=== PATIENT | male | born 1985 | race African-American/Black ===

== ENCOUNTER 2016-09-21 00:43 | Emergency (ER) | payer SELFPAY ==
[~2016-09-21] VITALS: Ht 185.4 cm; Wt 67.4 kg
[2016-09-21] MEDS ORDERED: PERCOCET 5/325M1 TAB PO (03:08)
[2016-09-21] MEDS ORDERED: ORPHENADRINE100 MG PO (03:08)
[2016-09-21 03:20] VITALS: BP 124/75
== END 2016-09-21 03:21 | disposition home or self-care (01) | DRG 552 ==
LOC: ED 00:43
DX: M54.9 Dorsalgia, unspecified (principal)

== ENCOUNTER 2017-01-08 16:24 | Emergency (ER) | payer SELFPAY ==
[~2017-01-08] VITALS: Ht 185.4 cm; Wt 80.0 kg
[~2017-01-08 16:24] MED LIST: ORPHENADRINE100 MG PO; PERCOCET 5/325M1 TAB PO
[2017-01-08] MEDS ORDERED: AFRIN 12 HOUR0.05 % (16:57)
[2017-01-08] MEDS ORDERED: TYLENOL # 31 TA1 PO (16:57)
[2017-01-08] MEDS ORDERED: ZITHROMAX250 MG PO (16:57)
[2017-01-08 17:32] LABS: INFLUENZA A NONE DETECTED (NONE DETECT); INFLUENZA B NONE DETECTED (NONE DETECT)
[2017-01-08 17:42] VITALS: BP 119/78
== END 2017-01-08 17:55 | disposition home or self-care (01) | DRG 203 ==
LOC: ED 16:24
PROVIDERS: Emergency Medicine
DX: J40 Bronchitis, not specified as acute or chronic (principal); F17.210 Nicotine dependence, cigarettes, uncomplicated

== ENCOUNTER 2017-01-13 15:43 | Emergency (ER) | payer SELFPAY ==
[~2017-01-13] VITALS: Ht 185.4 cm; Wt 60.0 kg
[~2017-01-13 15:43] MED LIST changes: +AFRIN 12 HOUR0.05 %; +TYLENOL # 31 TA1 PO; +ZITHROMAX250 MG PO
[2017-01-13 16:56] VITALS: BP 109/57
[2017-01-13 16:58] LABS: HEMATOCRIT 37.5 % (39.0-50.0); HEMOGLOBIN 12.7 g/dl (14.0-18.0); IMMATURE GRANULOCYTES 0.1 % (0.0-1.0); MEAN CORPUSCULAR HGB 29.8 pG CALC (26.0-32.0); MEAN CORPUSCULAR HGB CONC 33.9 g/L CALC (32.0-36.0); NEUT# 4.71 thou/uL (1.82-7.42); RED BLOOD COUNT 4.26 mill/uL (4.70-6.10)
[2017-01-13 17:10] LABS: ALBUMIN 4.6 g/dL (3.2-5.0); ALKALINE PHOSPHATASE 45 u/l (38-126); ANION GAP 15 (6-22 (CALC)); BILIRUBIN, TOTAL 2.4 mg/dL (0.0-1.4); BUN 14 mg/dL (9-20); BUN/CREATININE RATIO 18 (12-20 (CALC)); CARBON DIOXIDE 26 mmol/l (22-30); CHLORIDE 103 mmol/l (95-108); CPK 292 u/l (52-200); CREATININE 0.8 mg/dL (0.7-1.3); GFR > 60 ML/MIN (>=60 (CALC)); GFR FOR AFR.AMER. > 60 ML/MIN (>=60 (CALC)); GLUCOSE 103 mg/dL (75-110); POTASSIUM 3.7 mmol/l (3.5-5.1); SGOT/AST 19 u/l (17-59); SGPT/ALT 31 u/l (21-72); SODIUM 140 mmol/l (137-146); TOTAL PROTEIN 7.8 g/dL (6.3-8.2)
[2017-01-13 17:18] LABS: INFLUENZA A NONE DETECTED (NONE DETECT); INFLUENZA B NONE DETECTED (NONE DETECT)
== END 2017-01-13 19:15 | disposition home or self-care (01) | DRG 310 ==
LOC: ED 15:43
PROVIDERS: Emergency Medicine
DX: R00.1 Bradycardia, unspecified (principal); F17.210 Nicotine dependence, cigarettes, uncomplicated; J06.9 Acute upper respiratory infection, unspecified; R42 Dizziness and giddiness; H53.8 Other visual disturbances; M79.1 Myalgia; R05 Cough

== ENCOUNTER 2017-06-21 18:25 | Emergency (ER) | payer SELFPAY ==
[~2017-06-21] VITALS: Ht 185.4 cm; Wt 63.0 kg
[2017-06-21 19:20] LABS: HEMATOCRIT 42.4 % (39.0-50.0); HEMOGLOBIN 14.2 g/dl (14.0-18.0); IMMATURE GRANULOCYTES 0.2 % (0.0-1.0); MEAN CELL VOLUME 89.5 fL CALC (80.0-100.0); MEAN CORPUSCULAR HGB CONC 33.5 g/L CALC (32.0-36.0); NEUT# 2.64 thou/uL (1.82-7.42); RED BLOOD COUNT 4.74 mill/uL (4.70-6.10)
[2017-06-21 19:33] LABS: INFLUENZA A NONE DETECTED (NONE DETECT); INFLUENZA B NONE DETECTED (NONE DETECT)
[2017-06-21 19:59] LABS: ALBUMIN 4.4 g/dL (3.2-5.0); ALKALINE PHOSPHATASE 47 u/l (38-126); ANION GAP 15 (6-22 (CALC)); BILIRUBIN, TOTAL 1.3 mg/dL (0.0-1.4); BUN 14 mg/dL (9-20); BUN/CREATININE RATIO 17 (12-20 (CALC)); CALCIUM 9.4 mg/dL (8.4-10.2); CARBON DIOXIDE 25 mmol/l (22-30); CHLORIDE 107 mmol/l (95-108); CREATININE 0.8 mg/dL (0.7-1.3); GFR > 60 ML/MIN (>=60 (CALC)); GFR FOR AFR.AMER. > 60 ML/MIN (>=60 (CALC)); GLUCOSE 90 mg/dL (75-110); LIPASE 81 u/l (23-300); POTASSIUM 3.9 mmol/l (3.5-5.1); SGOT/AST 25 u/l (17-59); SGPT/ALT 24 u/l (21-72); SODIUM 143 mmol/l (137-146); TOTAL PROTEIN 7.2 g/dL (6.3-8.2)
[2017-06-21 20:16] LABS: URINE BILIRUBIN - DIPSTICK NEGATIVE (NEGATIVE); URINE BLOOD DIPSTICK NEGATIVE (NEGATIVE); URINE CLARITY CLEAR; URINE COLOR YELLOW; URINE GLUCOSE - DIPSTICK NEGATIVE (NEGATIVE); URINE KETONE NEGATIVE (NEGATIVE); URINE LEUK ESTERASE NEGATIVE (NEGATIVE); URINE NITRITE - DIPSTICK NEGATIVE (Negative); URINE PH 5.5 (4.5-8.0); URINE PROTEIN - DIPSTICK NEGATIVE (NEG-TRACE); URINE SPECIFIC GRAVITY >=1.030
[2017-06-21 20:39] VITALS: BP 118/81
== END 2017-06-21 20:48 | disposition home or self-care (01) | DRG 392 ==
LOC: ED 18:25
PROVIDERS: Family Medicine
DX: K52.9 Noninfective gastroenteritis and colitis, unspecified (principal); R10.9 Unspecified abdominal pain; R11.2 Nausea with vomiting, unspecified

== ENCOUNTER 2017-10-30 07:24 | Emergency (ER) | payer OTHER ==
[~2017-10-30] VITALS: Ht 185.4 cm; Wt 60.0 kg
[2017-10-30] MEDS ORDERED: CEPHALEXIN500 M1 PO (08:23)
[2017-10-30 08:29] VITALS: BP 139/78
== END 2017-10-30 08:42 | disposition home or self-care (01) | DRG 605 ==
LOC: ED 07:24
PROC: 0HQGXZZ Repair Left Hand Skin, External Approach (ICD-10-PCS; principal; 2017-10-30)
DX: S61.215A Laceration without foreign body of left ring finger without damage to nail, initial encounter (principal); F17.210 Nicotine dependence, cigarettes, uncomplicated; S62.635A Displaced fracture of distal phalanx of left ring finger, initial encounter for closed fracture; S61.217A Laceration without foreign body of left little finger without damage to nail, initial encounter; W26.0XXA Contact with knife, initial encounter; Y93.89 Activity, other specified; Y92.512 Supermarket, store or market as the place of occurrence of the external cause; Y99.0 Civilian activity done for income or pay

== ENCOUNTER 2018-11-14 09:33 | Inpatient (IN) | payer SELFPAY ==
[~2018-11-14] VITALS: Ht 185.4 cm; Wt 90.9 kg
[~2018-11-14 09:33] MED LIST changes: +CEPHALEXIN500 M1 PO
[2018-11-14 10:11] LABS: HEMATOCRIT 37.3 % (39.0-50.0); HEMOGLOBIN 12.7 g/dl (14.0-18.0); IMMATURE GRANULOCYTES 0.2 % (0.0-5.0); MEAN CELL VOLUME 89.2 fL CALC (80.0-100.0); MEAN CORPUSCULAR HGB 30.4 pG CALC (26.0-32.0); NEUT# 1.78 thou/uL (1.82-7.42); RED BLOOD COUNT 4.18 mill/uL (4.70-6.10); RED CELL DISTRI WIDTH 12.9 % (11.5-15.5)
[2018-11-14 10:31] LABS: ALBUMIN 4.5 g/dL (3.2-5.0); ALKALINE PHOSPHATASE 45 u/l (38-126); ANION GAP 15 (6-22 (CALC)); BILIRUBIN, TOTAL 1.1 mg/dL (0.0-1.4); BUN 18 mg/dL (9-20); BUN/CREATININE RATIO 25 (12-20 (CALC)); CARBON DIOXIDE 24 mmol/l (22-30); CHLORIDE 104 mmol/l (95-108); CREATININE 0.7 mg/dL (0.7-1.3); GFR > 60 ML/MIN (>=60 (CALC)); GFR FOR AFR.AMER. > 60 ML/MIN (>=60 (CALC)); POTASSIUM 3.9 mmol/l (3.5-5.1); SGOT/AST 38 u/l (17-59); SODIUM 138 mmol/l (137-146); TOTAL PROTEIN 7.2 g/dL (6.3-8.2)
[2018-11-14 10:37] LABS: ETHYL ALCOHOL 0 mg/dl (0-30)
[2018-11-14 11:01] LABS: TSH, 3RD GENERATION 1.37 uIU/mL (0.47 - 4.68)
[2018-11-14 12:00] LABS: URINE BILIRUBIN - DIPSTICK NEGATIVE (NEGATIVE); URINE BLOOD DIPSTICK NEGATIVE (NEGATIVE); URINE COLOR YELLOW; URINE GLUCOSE - DIPSTICK NEGATIVE (NEGATIVE); URINE KETONE NEGATIVE (NEGATIVE); URINE LEUK ESTERASE NEGATIVE (NEGATIVE); URINE NITRITE - DIPSTICK NEGATIVE (Negative); URINE PH 7.5 (4.5-8.0); URINE PROTEIN - DIPSTICK TRACE mg/dL (NEG-TRACE); URINE SPECIFIC GRAVITY 1.015; URINE UROBILINOGEN - DIPSTICK 0.2 E.U./dL (0.2)
[2018-11-14 12:05] LABS: BARBITURATES NEGATIVE (NEGATIVE); COCAINE NEGATIVE (NEGATIVE); METHADONE NEGATIVE (NEGATIVE); OXCYCODONE NEGATIVE (NEGATIVE); TETRAHYDROCANNABIONOL NEGATIVE (NEGATIVE); TRICYLIC ANTIDEPRESSANTS NEGATIVE (NEGATIVE)
[2018-11-14 17:10] VITALS: BP 117/80
== END 2018-11-14 17:45 | disposition left against medical advice (07) | DRG 918 ==
LOC: ED 09:33 → ED-I 12:00 → ED 13:27 → ICU 13:28
PROVIDERS: Emergency Medicine; ADMIT Internal Medicine Nephrology; ATTEND Internal Medicine Nephrology
PROC: 0T9B70Z Drainage of Bladder with Drainage Device, Via Natural or Artificial Opening (ICD-10-PCS; principal; 2018-11-14)
DX: T50.901A Poisoning by unspecified drugs, medicaments and biological substances, accidental (unintentional), initial encounter (principal); M62.82 Rhabdomyolysis; R00.1 Bradycardia, unspecified; E86.0 Dehydration; R68.0 Hypothermia, not associated with low environmental temperature; Y92.009 Unspecified place in unspecified non-institutional (private) residence as the place of occurrence of the external cause
CPT/HCPCS: J1650

== ENCOUNTER 2019-05-17 06:22 | Emergency (ER) | payer SELFPAY ==
[~2019-05-17] VITALS: Ht 185.4 cm; Wt 64.0 kg
[2019-05-17 07:03] LABS: HEMATOCRIT 38.7 % (39.0-50.0); HEMOGLOBIN 12.6 g/dl (14.0-18.0); IMMATURE GRANULOCYTES 0.2 % (0.0-5.0); MEAN CELL VOLUME 89.4 fL CALC (80.0-100.0); MEAN CORPUSCULAR HGB 29.1 pG CALC (26.0-32.0); MEAN CORPUSCULAR HGB CONC 32.6 g/L CALC (32.0-36.0); NEUT# 2.82 thou/uL (1.82-7.42); RED BLOOD COUNT 4.33 mill/uL (4.70-6.10); RED CELL DISTRI WIDTH 13.3 % (11.5-15.5); URINE BILIRUBIN - DIPSTICK NEGATIVE (NEGATIVE); URINE BLOOD DIPSTICK TRACE-INTACT (NEGATIVE); URINE COLOR YELLOW; URINE GLUCOSE - DIPSTICK NEGATIVE (NEGATIVE); URINE KETONE NEGATIVE (NEGATIVE); URINE LEUK ESTERASE NEGATIVE (NEGATIVE); URINE NITRITE - DIPSTICK NEGATIVE (Negative); URINE PH 5.5 (4.5-8.0); URINE PROTEIN - DIPSTICK NEGATIVE (NEG-TRACE); URINE SPECIFIC GRAVITY >=1.030; URINE UROBILINOGEN - DIPSTICK 0.2 E.U./dL (0.2)
[2019-05-17 07:48] LABS: ALBUMIN 4.3 g/dL (3.2-5.0); ALKALINE PHOSPHATASE 47 u/l (38-126); ANION GAP 14 (6-22 (CALC)); BILIRUBIN, TOTAL 0.7 mg/dL (0.0-1.4); BUN 15 mg/dL (9-20); BUN/CREATININE RATIO 21 (12-20 (CALC)); CARBON DIOXIDE 24 mmol/l (22-30); CHLORIDE 103 mmol/l (95-108); CREATININE 0.7 mg/dL (0.7-1.3); GFR > 60 ML/MIN (>=60 (CALC)); GFR FOR AFR.AMER. > 60 ML/MIN (>=60 (CALC)); POTASSIUM 4.1 mmol/l (3.5-5.1); SGOT/AST 24 u/l (17-59); SODIUM 137 mmol/l (137-146); TOTAL PROTEIN 7.8 g/dL (6.3-8.2)
[2019-05-17 08:22] VITALS: BP 109/78
== END 2019-05-17 08:22 | disposition home or self-care (01) | DRG 696 ==
LOC: ED 06:22
PROVIDERS: Family Medicine
DX: R31.9 Hematuria, unspecified (principal)

== ENCOUNTER 2019-08-05 11:59 | Emergency (ER) | payer SELFPAY ==
[2019-08-05] MEDS ORDERED: ZOFRAN4 MG/TAB PO (12:31)
[2019-08-05 12:46] VITALS: BP 118/82
== END 2019-08-05 12:50 | disposition home or self-care (01) | DRG 392 ==
LOC: ED 11:59
DX: R11.2 Nausea with vomiting, unspecified (principal)

== ENCOUNTER 2019-08-27 | Emergency (ER) | payer SELFPAY ==
[~2019-08-27] MED LIST changes: +ZOFRAN4 MG/TAB PO
[2019-08-27 10:42] LABS: HEMATOCRIT 38.4 % (39.0-50.0); HEMOGLOBIN 12.5 g/dl (14.0-18.0); IMMATURE GRANULOCYTES 0.4 % (0.0-5.0); MEAN CELL VOLUME 90.8 fL CALC (80.0-100.0); MEAN CORPUSCULAR HGB 29.6 pG CALC (26.0-32.0); MEAN CORPUSCULAR HGB CONC 32.6 g/dL CAL (32.0-36.0); NEUT# 2.43 thou/uL (1.82-7.42); RED BLOOD COUNT 4.23 mill/uL (4.70-6.10); RED CELL DISTRI WIDTH 13.3 % (11.5-15.5)
[2019-08-27 11:16] LABS: ALBUMIN 4.2 g/dL (3.2-5.0); ALKALINE PHOSPHATASE 43 u/l (38-126); AMYLASE 47 u/l (30-110); ANION GAP 9 (6-22 (CALC)); BILIRUBIN, TOTAL 0.9 mg/dL (0.0-1.4); BUN 17 mg/dL (9-20); BUN/CREATININE RATIO 22 (12-20 (CALC)); CARBON DIOXIDE 26 mmol/l (22-30); CHLORIDE 107 mmol/l (95-108); CREATININE 0.7 mg/dL (0.7-1.3); GFR > 60 ML/MIN (>=60 (CALC)); GFR FOR AFR.AMER. > 60 ML/MIN (>=60 (CALC)); LIPASE 111 u/l (23-300); POTASSIUM 4.3 mmol/l (3.5-5.1); SGOT/AST 25 u/l (17-59); SODIUM 138 mmol/l (137-146); TOTAL PROTEIN 7.1 g/dL (6.3-8.2)
[2019-08-27] MEDS ORDERED: ONDANSETRON4 MG PO (11:19)
== END 2019-08-27 11:41 | disposition home or self-care (01) | DRG 392 ==
PROVIDERS: Emergency Medicine
DX: R11.2 Nausea with vomiting, unspecified (principal)

== ENCOUNTER 2019-09-17 | Emergency (ER) | payer SELFPAY ==
[~2019-09-17] MED LIST changes: +ONDANSETRON4 MG PO
[2019-09-17 12:06] LABS: HEMATOCRIT 38.1 % (39.0-50.0); HEMOGLOBIN 12.9 g/dl (14.0-18.0); IMMATURE GRANULOCYTES 0.2 % (0.0-5.0); MEAN CELL VOLUME 88.4 fL CALC (80.0-100.0); MEAN CORPUSCULAR HGB 29.9 pG CALC (26.0-32.0); MEAN CORPUSCULAR HGB CONC 33.9 g/dL CAL (32.0-36.0); NEUT# 2.55 thou/uL (1.82-7.42); RED BLOOD COUNT 4.31 mill/uL (4.70-6.10)
[2019-09-17 12:22] LABS: ALBUMIN 4.4 g/dL (3.2-5.0); ALKALINE PHOSPHATASE 41 u/l (38-126); ANION GAP 13 (6-22 (CALC)); BUN 20 mg/dL (9-20); BUN/CREATININE RATIO 25 (12-20 (CALC)); CARBON DIOXIDE 22 mmol/l (22-30); CHLORIDE 106 mmol/l (95-108); CREATININE 0.8 mg/dL (0.7-1.3); GFR > 60 ML/MIN (>=60 (CALC)); GFR FOR AFR.AMER. > 60 ML/MIN (>=60 (CALC)); LIPASE 89 u/l (23-300); POTASSIUM 3.9 mmol/l (3.5-5.1); SGOT/AST 28 u/l (17-59); SODIUM 137 mmol/l (137-146); TOTAL PROTEIN 7.6 g/dL (6.3-8.2)
[2019-09-17 12:25] LABS: BILIRUBIN, TOTAL 1.3 mg/dL (0.0-1.4)
[2019-09-17] MEDS ORDERED: ONDANSETRON4 MG PO ×2 (12:43)
== END 2019-09-17 12:46 | disposition home or self-care (01) | DRG 392 ==
PROVIDERS: Family Medicine
DX: R11.2 Nausea with vomiting, unspecified (principal)

== ENCOUNTER 2020-02-02 09:23 | Emergency (ER) | payer SELFPAY ==
[~2020-02-02] VITALS: Ht 185.4 cm; Wt 64.0 kg
[2020-02-02 10:53] VITALS: BP 110/76
== END 2020-02-02 10:53 | disposition home or self-care (01) | DRG 153 ==
LOC: ED 09:23
DX: J06.9 Acute upper respiratory infection, unspecified (principal); J02.8 Acute pharyngitis due to other specified organisms; F17.210 Nicotine dependence, cigarettes, uncomplicated

== ENCOUNTER 2020-02-20 01:14 | Emergency (ER) | payer SELFPAY ==
[~2020-02-20] VITALS: Ht 185.4 cm; Wt 66.3 kg
[2020-02-20] MEDS ORDERED: AMOXICILLIN500 MG PO (01:32)
[2020-02-20] MEDS ORDERED: ULTRAM50 M1 PO (01:32)
[2020-02-20 02:00] VITALS: BP 113/80
== END 2020-02-20 02:00 | disposition home or self-care (01) | DRG 159 ==
LOC: ED 01:14
DX: K08.89 Other specified disorders of teeth and supporting structures (principal); F17.210 Nicotine dependence, cigarettes, uncomplicated

== ENCOUNTER 2020-08-10 11:10 | Emergency (ER) | payer SELFPAY ==
[~2020-08-10] VITALS: Ht 185.4 cm; Wt 71.0 kg
[~2020-08-10 11:10] MED LIST changes: +AMOXICILLIN500 MG PO; +ULTRAM50 M1 PO
[2020-08-10 11:48] LABS: HEMATOCRIT 38.9 % (39.0-50.0); HEMOGLOBIN 12.9 g/dl (14.0-18.0); MEAN CELL VOLUME 89.8 fL CALC (80.0-100.0); MEAN CORPUSCULAR HGB 29.8 pG CALC (26.0-32.0); MEAN CORPUSCULAR HGB CONC 33.2 g/dL CAL (32.0-36.0); RED BLOOD COUNT 4.33 mill/uL (4.70-6.10); RED CELL DISTRI WIDTH 13.3 % (11.5-15.5)
[2020-08-10 11:49] LABS: BASO% 0 % (0-3); EOS% 0 % (0-8); LYMPH% 48 % (15-41); MONO% 9 % (2-13); NEUT% 43 % (42-76); PLATELET COUNT 229 thou/uL (130-400)
[2020-08-10 11:58] LABS: ANION GAP 14 (6-22 (CALC)); BUN 14 mg/dL (9-20); BUN/CREATININE RATIO 17 (12-20 (CALC)); CARBON DIOXIDE 21 mmol/l (22-30); CHLORIDE 107 mmol/l (95-108); CREATININE 0.8 mg/dL (0.7-1.3); GFR > 60 ML/MIN (>=60 (CALC)); GFR FOR AFR.AMER. > 60 ML/MIN (>=60 (CALC)); POTASSIUM 3.9 mmol/l (3.5-5.1); SODIUM 138 mmol/l (137-146)
[2020-08-10 12:30] VITALS: BP 108/60
== END 2020-08-10 12:50 | disposition home or self-care (01) | DRG 103 ==
LOC: ED 11:10
PROVIDERS: Family Medicine
DX: R51.9 Headache, unspecified (principal); F17.200 Nicotine dependence, unspecified, uncomplicated